=== PATIENT | female | born 1995 | race Caucasian/White ===

== ENCOUNTER 2017-02-18 20:20 | Emergency (ER) | payer BC ==
[~2017-02-18] VITALS: Ht 170.2 cm; Wt 56.4 kg
[2017-02-18 20:23] VITALS: TEMP 36.7; Ht 170.2 cm; Wt 56.4 kg
[2017-02-18] MEDS ORDERED: BCPILLS PO (20:31)
[2017-02-18] MEDS ORDERED: FLUV50TA2 PO (20:31)
[2017-02-18] MEDS ORDERED: IBUPROFEN 600 MG TAB PO STA (20:43)
[2017-02-18] MEDS ORDERED: IBUPROFEN 200 MG TAB ONE (20:50)
--- NOTE | 2017-02-18 21:18 | EMERGENCY ROOM VISIT NOTE ---
History First contact with patient: 20:29 Chief Complaint: FOREIGNBODY ANY BODY PART Stated Complaint: FISHING HOOK STUCK IN LEFT HAND, 4TH DIGIT History of Present Illness The patient is a 21 year old female who presents to the Emergency Room via private vehicle accompanied by male with complaints of "fishing hook stuck in left hand, fourth digit". The patient states that approximately 1 hour prior to arrival, she was fishing and accidentally was struck in the left fourth digit by a fishing hook. She is left-handed. She rates her pain as a 3/10. She denies chance of . Her tetanus is up-to-date. There was minimal bleeding. Review of Systems A complete 6-point Review of Systems was discussed with the patient, with pertinent positives and negatives listed in the History of Present Illness. All remaining Review of Systems questions can be considered negative unless otherwise specified. Past Medical/Surgical History Unremarkable Family History Diabetes, high blood pressure Social History Smoking Status: Never Smoker Social History: Patient lives with parents. She admits to alcohol use and denies tobacco use. Current/Historical Medications Scheduled Control Pills ( Control Pills), 1 TAB PO DAILY Fluvoxamine Maleate (Luvox), 50 MG PO DAILY Allergies Coded Allergies: No Known Allergies (Unverified , 02/18/17) Physical Exam Vital Signs Date Time Temp Pulse Resp B/P (MAP) Pulse Ox O2 Delivery O2 Flow Rate FiO2 02/18/17 21:25 44 16 105/53 98 02/18/17 20:23 36.7 103 18 104/54 96 Room Air Physical Exam VITAL SIGNS - Vital signs and nursing notes were reviewed. Patient is afebrile , normotensive, slightly tachycardic at a rate of 103 bpm, and is saturating well on room air 96%. GENERAL -21-year-old female appearing her stated age who is in no acute distress. Communicates well with provider and answers questions appropriately. SKIN - Without rashes. There is a fishhook in the ventral aspect of the finger pad of the right fourth digit. No active bleeding noted. Full range of motion of this region. She is neurovascularly intact in this region. Medical Decision & Procedures Medications Administered Medications (Trade) Dose Ordered Sig/Castro Route Start Time Stop Time Status Last Admin Dose Admin Ibuprofen (Advil Tab) 400 mg STK-MED ONCE .ROUTE 02/18/17 20:50 02/18/17 20:51 DC 02/18/17 20:52 400 MG Medical Decision Patient was seen and evaluated as above. After obtaining a thorough history and physical examination patient was provided with many options regarding management of their embedded fishing hook. I offered her anesthetization versus gonzales removal without. She did agree upon allowing me to attempt to remove this with umbilical tape wrapped around a curve portion. I taped the other barbs of the fishing lure, this was to prevent further injury. I then after obtaining consent, tight umbilical tape around the bend of the hook, and with downward pressure and any gonzales motion pulled the hook from the patient's finger. She tolerated this very well. The wound was cleansed with sterile saline, and dressed with a bacitracin dressing and bandage. She was offered oral pain medication, but at this time I believe that topical anabiotic's are sufficient. Her neurovascular status was reassessed and found to be intact. Full range of motion noted. She was educated upon worrisome symptoms which to return, had questions prior to discharge, and was discharged home in good condition. While here she was given ibuprofen for her pain. In the evaluation and treatment of this patient, the following differential diagnoses were considered: Finger Fracture, Finger Dislocation, Finger Sprain, Finger Contusion, Jersey Finger, or Mallet Finger. Impression Primary Impression: Fishing hook foreign body Departure Information Dispostion Home / Self-Care Condition GOOD Referrals No Doctor, Assigned (PCP) Patient Instructions My [facility] Additional Instructions You were seen in the emergency Department for a fishhook stuck in your finger. Please cleanse the area daily, and apply bacitracin dressing for the next 2-3 days. Please watch for signs of infection to include redness, swelling, drainage and if these were to develop please return immediately. Please return to emergency department with any new/concerning symptoms.
[2017-02-18 21:25] VITALS: BP 105/53; PULSE 44; O2SAT 98
== END 2017-02-18 21:20 | disposition home or self-care (01) ==
LOC: C.EDB 20:23 → C.EDD 21:20
DX: S61.245A Puncture wound with foreign body of left ring finger without damage to nail, initial encounter (principal); W45.8XXA Other foreign body or object entering through skin, initial encounter; Y92.89 Other specified places as the place of occurrence of the external cause; Y93.89 Activity, other specified; Z83.3 Family history of diabetes mellitus; Z82.49 Family history of ischemic heart disease and other diseases of the circulatory system; Z79.3 Long term (current) use of hormonal contraceptives